=== PATIENT | male | born 1975 | race Caucasian/White ===

== ENCOUNTER 2017-04-19 13:11 | Emergency (ER) | payer SELFPAY | END 2017-04-19 15:42 | disposition home or self-care (01) | LOC: FER 13:11 | DX: S61.012A Laceration without foreign body of left thumb without damage to nail, initial encounter (principal); F17.200 Nicotine dependence, unspecified, uncomplicated; X58.XXXA Exposure to other specified factors, initial encounter | CPT/HCPCS: 73140 ==

== ENCOUNTER 2017-07-20 19:36 | Emergency (ER) | payer SELFPAY ==
[2017-07-20 19:57] LABS: BASOPHIL 0.3 % (0-2); EOSINOPHIL 2.6 % (0-5); HCT 42.7 % (42.0-52.0); HGB 14.7 g/dl (13.2-18.0); LYMPHOCYTE 38.4 % (15-48); MCH 30.9 pg (25.0-31.0); MCHC 34.4 g/dL (32.0-36.0); MCV 89.9 fL (78.0-100.0); MONOCYTE 5.5 % (0-12); MPV 10.7 fL (6.0-9.5); NEUTROPHIL 53.2 % (41-80); PLT 247 K/uL (150-400); RBC 4.75 M/uL (4.70-6.00); RDW 13.1 % (11.5-14.0); WBC 7.4 K/uL (4.0-10.5)
[2017-07-20 20:08] LABS: ALBUMIN 4.2 g/dL (3.5-5.0); BILIRUBIN - TOTAL 0.4 mg/dL (0.1-1.0); GLOBULIN (CALCULATION) 3.3 g/dL (2.2-4.2); POTASSIUM 3.3 mmol/L (3.5-5.1); TOTAL PROTEIN 7.5 g/dL (6.4-8.3)
[2017-07-20 20:09] LABS: ACETAMINOPHEN (TYLENOL) < 5.0 ug/mL (10.0-30.0); ALCOHOL (ETOH) MEDICAL 53 mg/dL; SALICYLATE < 6 ug/mL (0-300)
== END 2017-07-20 21:05 | disposition home or self-care (01) ==
LOC: FER 19:36
PROVIDERS: Emergency Medicine
DX: T40.1X1A Poisoning by heroin, accidental (unintentional), initial encounter (principal); K21.9 Gastro-esophageal reflux disease without esophagitis; F17.200 Nicotine dependence, unspecified, uncomplicated; Z79.899 Other long term (current) drug therapy; R41.82 Altered mental status, unspecified
CPT/HCPCS: 36415; 80053; 84484; 85025; G0480; J2405